=== PATIENT | male | born 2000 ===

== ENCOUNTER → 2025-06-05 | Outpatient (REF) | payer OTHER, BC ==
[2025-06-05 14:54] LABS: SEMEN APPEARANCE OPAQUE (OPAQUE); SEMEN VISCOSITY LIQUID (LIQUID); SEMEN VOLUME 5.3 ml (2.0-5.0); SPERM CONCENTRATION 44.2 M/ml (>=15.0); WBC CONCENTRATION >1 M/ml (<=1 M/ml)
[2025-06-05 14:55] LABS: TOTAL PROGRESSIVE SPERM 111.9 M/Ejac.
== END ==
LOC: M LAB REF 14:18
PROVIDERS: ATTEND Specialist
DX: N46.9 Male infertility, unspecified (principal)